=== PATIENT | male | born 1975 | race Hispanic/Latino ===

== ENCOUNTER 2017-08-29 01:04 | Emergency (ER) | payer SELFPAY ==
[2017-08-29] MEDS ORDERED: Pantoprazole 40 MG VIAL ONE (01:54)
[2017-08-29] MEDS ORDERED: Ondansetron HCl/PF 4 MG/2 ML Vial ONE (01:54)
[2017-08-29] MEDS ORDERED: Ketorolac Tromethamine 30 MG/ML VIAL ONE (02:09)
[2017-08-29 02:22] LABS: ALT (SGPT) 74 U/L (8-55); AST (SGOT) 37 U/L (5-34); Albumin 4.7 g/dL (3.5-5.0); Alkaline Phosphatase 79 U/L (40-150); Anion Gap 14 mmol/L (10-20); BUN (Urea Nitrogen) 13 mg/dL (8.9-20.6); Bilirubin, Total 0.8 mg/dL (0.2-1.2); Calc. Creatinine Clearance 0 mL/min (70-130); Calcium 9.7 mg/dL (7.8-10.44); Carbon Dioxide 23 mmol/L (22-29); Chloride 106 mmol/L (98-107); Estimated GFR-MDRD Greater than 90; Globulin 3.4 g/dL (2.4-3.5); Glucose 84 mg/dL (70-105); Hemoglobin 17.1 g/dL (14.0-18.0); Mean Corpuscular Hemoglobin 32.4 pg (27.0-31.0); Mean Corpuscular Volume 87.6 fl (80.0-94.0); Mean Platelet Volume 10.9 fL (7.4-10.4); Platelet Count 168 thou/uL (130-400); Potassium 3.7 mmol/L (3.5-5.1); Protein, Total 8.1 g/dL (6.0-8.3); RBC Distribution Width 11.1 % (11.5-14.5); Red Blood Cell (RBC) Count 5.27 mill/uL (4.70-6.10); Sodium 139 mmol/L (136-145); White Blood Cell (WBC) Count 7.3 thou/uL (4.8-10.8)
[2017-08-29 02:25] LABS: CKMB 2.3 ng/mL (0-6.6); Troponin I Less than 0.010 ng/mL (< 0.028)
[2017-08-29 02:36] LABS: #Basophils 0.1 thou/uL (0.0-0.2); #Eosinphils 0.2 thou/uL (0.0-0.7); #Lymphocytes 2.5 thou/uL (1.20-3.40); #Monocytes 0.6 thou/uL (0.11-0.59); %Basophils 1.2 % (0.0-1.0); %Eosinophils 2.3 % (0.0-10.0); %Lymphocytes 34.2 % (21.0-51.0); %Monocytes 7.9 % (0.0-10.0); %Neutrophils 54.5 % (42.0-75.0); PLT Morphology Comment Appears Adequate; RBC Morphology Normal
[2017-08-29] MEDS ORDERED: AMOXicillin 250 MG CAP ONE (02:38)
--- NOTE | 2017-08-29 07:00 | RAD ---
PORTABLE CHEST: Date: 08/29/17 An AP portable film at 0138 hours is compared with the 10/08/03 study. FINDINGS: The heart is normal in size and the lungs are clear. No infiltrate or effusion seen. No vascular rosita estion or edema. Some old, healed rib fractures are noted on the left. Mediastinum appears normal. IMPRESSION: No acute thoracic findings. POS: HOME
== END 2017-08-29 02:53 | disposition home or self-care (01) ==
LOC: BURERS 01:04
DX: J32.9 Chronic sinusitis, unspecified (principal); R55 Syncope and collapse
CPT/HCPCS: 36415; 71045; 80053; 82553; 84484; 85025; 93005; 96361; 96374; 96375; C9113; J1885; J2405

== ENCOUNTER 2021-02-18 21:20 | Emergency (ER) | payer OTHER, SELFPAY | END 2021-02-18 22:09 | disposition home or self-care (01) | LOC: BURERS 21:20 | DX: S83.91XA Sprain of unspecified site of right knee, initial encounter (principal) | CPT/HCPCS: 99283 ==

== ENCOUNTER 2021-12-27 19:21 | Emergency (ER) | payer SELFPAY | END 2021-12-27 19:56 | disposition home or self-care (01) | LOC: BURERS 19:21 | DX: L02.412 Cutaneous abscess of left axilla (principal) | CPT/HCPCS: 10060 ==

== ENCOUNTER 2022-02-28 09:51 | Emergency (ER) | payer SELFPAY ==
[2022-02-28 10:15] LABS: #Basophils 0.1 thou/uL (0.0-0.2); #Eosinphils 0.2 thou/uL (0.0-0.7); #Lymphocytes 2.2 thou/uL (1.20-3.40); #Monocytes 0.4 thou/uL (0.11-0.59); #Neutrophils 4.2 thou/uL (1.40-6.50); %Basophils 0.9 % (0.0-1.0); %Eosinophils 2.6 % (0.0-10.0); %Lymphocytes 31.3 % (21.0-51.0); %Monocytes 6.2 % (0.0-10.0); %Neutrophils 59.1 % (42.0-75.0); Hemoglobin 17.2 g/dL (14.0-18.0); Mean Corpuscular HGB CONC 34.8 g/dL (32.0-36.0); Mean Corpuscular Volume 89.2 fL (78.0-98.0); Mean Platelet Volume 9.2 fL (7.4-10.4); Platelet Count 178 thou/uL (130-400); RBC Distribution Width 11.5 % (11.5-14.5); Red Blood Cell (RBC) Count 5.52 mill/uL (4.70-6.10); White Blood Cell (WBC) Count 7.1 thou/uL (4.8-10.8)
[2022-02-28] MEDS ORDERED: Ondansetron PF 4 MG/2 ML Vial ONE (10:39)
[2022-02-28] MEDS ORDERED: Aspirin Chewable 81 MG TAB ONE (10:39)
[2022-02-28 10:40] LABS: ALT (SGPT) 76 U/L (8-55); AST (SGOT) 32 U/L (5-34); Albumin 4.5 g/dL (3.5-5.0); Alkaline Phosphatase 85 U/L (40-110); Anion Gap 16 mmol/L (10-20); BUN (Urea Nitrogen) 10 mg/dL (8.9-20.6); Bilirubin, Total 0.5 mg/dL (0.2-1.2); Calc. Creatinine Clearance 0 mL/min (70-130); Calcium 9.4 mg/dL (7.8-10.44); Carbon Dioxide 21 mmol/L (22-29); Chloride 104 mmol/L (98-107); Estimated GFR 110; Globulin 3.3 g/dL (2.4-3.5); Glucose 113 mg/dL (70-105); Potassium 4.4 mmol/L (3.5-5.1); Protein, Total 7.8 g/dL (6.0-8.3); Sodium 137 mmol/L (136-145)
== END 2022-02-28 12:31 | disposition home or self-care (01) ==
LOC: BURERS 09:51
DX: B34.9 Viral infection, unspecified (principal); Z20.822 Contact with and (suspected) exposure to COVID-19
CPT/HCPCS: 71045; 80053; 83880; 84484; 85025; 87081; 87430; 87804; 93005; 96361; 96374; J2405; U0003; U0005